=== PATIENT | female | born 1935 | race American Indian/Alaskan Native ===

== ENCOUNTER 2017-08-04 08:52 | Outpatient (CLI) | payer MEDICARE ==
[2017-08-04] MEDS ORDERED: PROVENTIL IH ONE (10:29)
--- NOTE | 2017-08-04 12:09 | Nuclear Medicine Report ---
LUNG SCAN, VENTILATION AND PERFUSION: History: Pulmonary hypertension, shortness of breath. Technique: 5mci of Tc99m MAA was infused for the perfusion images. 15mci XE 133 gas was inhaled for the ventilatory images. Correlation is made with a chest x-ray dated 08/04/17. Findings: Inhalation of Xenon gas demonstrates a normal distribution of the activity throughout both lungs. The wash out phases show no focal retention of activity. After injection of Technetium 99m macroaggregated albumin gamma camera imaging of the lungs in multiple projections demonstrates normal pulmonary contours with a homogeneous distribution of activity. No focal areas of perfusion deficiency are identified. IMPRESSION: Low probability for pulmonary embolus.
--- NOTE | 2017-08-04 12:56 | XRay Report ---
AP chest x-ray. History: Secondary pulmonary hypertension. Findings: The lungs are hyperinflated and clear. The heart is normal in size, but there is a questionable double density seen in the right paravertebral region just medial to the right heart border. Pulmonary vasculature is normal. There is no pleural fluid. Impression: 1. Hyperinflation of the lungs probably related to COPD. 2. Possible retrocardiac density seen medial to the right heart border. A lateral chest x-ray is recommended.
== END 2017-08-04 08:53 | disposition home or self-care (01) ==
LOC: PF 08:52
PROVIDERS: ATTEND Internal Medicine Cardiovascular Disease
DX: I87.2 Venous insufficiency (chronic) (peripheral) (principal); J98.11 Atelectasis
CPT/HCPCS: 71045; 78582; 82803; 94060; 94640; 94726; 94729; A9540; A9558